=== PATIENT | female | born 1980 | race African-American/Black ===

== ENCOUNTER 2017-08-09 16:48 | Emergency (ER) | payer SELFPAY ==
[2017-08-09] MEDS ORDERED: IPRATROPIUM BROM 0.5MG/2.5ML ONE (17:26)
[2017-08-09] MEDS ORDERED: ALBUTEROL 2.5 MG/3 ML NEB SOL ONE (17:26)
[2017-08-09] MEDS ORDERED: predniSONE 20 MG TAB ONE (17:41)
--- NOTE | 2017-08-09 18:01 | ER ---
Nurse's Notes [facility] Name: Ivone White Age: 36 yrs Sex: Female : 1980 Arrival Date: 08/09/2017 Time: 16:48 Bed 15 Private MD: Diagnosis: Unspecified asthma with (acute) exacerbation;Other seasonal allergic rhinitis Presentation: 08/09 16:51 Presenting complaint: Patient states: my chest hurts and have difficulty breathing, it hj started this morning; been taking inhalers and not helping; reports since June; denies fever and chills; hx of asthma;. Transition of care: patient was not received from another setting of care. Onset of symptoms was August 09, 2017. Care prior to arrival: None. 16:51 Method Of Arrival: Ambulatory 16:51 Acuity: SANDRE 3 hj Triage Assessment: 16:53 General: Appears in no apparent distress. uncomfortable, Behavior is calm, cooperative, hj appropriate for age. Pain: Complains of pain in chest Pain does not radiate. Pain currently is 10 out of 10 on a pain scale. 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 - Social history:: Smoking status: Patient uses tobacco products, denies chronic smoking, but will smoke occasionally. Screenin:00 Abuse screen: Denies threats or abuse. Nutritional screening: No deficits noted. rb1 Tuberculosis screening: No symptoms or risk factors identified. Fall Risk None identified. Assessment: 17:00 General: Appears uncomfortable, obese, Behavior is calm, cooperative. General: Reports rb1 pain in chest when coughing Denies fever. Pain: Complains of pain in mid-sternal area Pain currently is 6 out of 10 on a pain scale. Neuro: Level of Consciousness is awake, alert, obeys commands, Oriented to person, place, time, situation. Cardiovascular: Capillary refill < 3 seconds is brisk in bilateral fingers. Respiratory: Airway is patent Respiratory effort is even, unlabored, Respiratory pattern is regular, symmetrical, Breath sounds with wheezes bilaterally. GI: No signs and/or symptoms were reported involving the gastrointestinal system. : No signs and/or symptoms were reported regarding the genitourinary system. Derm: Skin is dry, Skin is normal, Skin temperature is warm. Musculoskeletal: Range of motion: intact in all extremities. 18:00 Reassessment: Patient appears in no apparent distress at this time. Patient and/or rb1 family updated on plan of care and expected duration. Pain level reassessed. Patient is alert, oriented x 3, equal unlabored respirations, skin warm/dry/pink. Patient states symptoms have improved. Vital Signs: 16:54 BP 133 / 89; Pulse 89; Resp 18; Temp 97.8(TE); Pulse Ox 98% on R/A; Weight 131.54 kg; hj Height 5 ft. 6 in. (167.64 cm); Pain 10/10; 17:30 BP 123 / 82; Pulse 81; Resp 18; Pulse Ox 100% on R/A; rb1 18:31 BP 129 / 56; Pulse 93; Resp 19; Pulse Ox 100% on R/A; rb1 16:54 Body Mass Index 46.81 (131.54 kg, 167.64 cm) hj ED Course: 16:48 Patient arrived in ED. as 16:50 Allan Figueredo NP is PHCP. pm1 16:50 Kenyon Mensah MD is Attending Physician. pm1 16:52 Triage completed. hj 16:54 Arm band placed on left wrist. hj 17:00 Patient has correct armband on for positive identification. Bed in low position. Call rb1 light in reach. Side rails up X 1. Pulse ox on. NIBP on. 17:09 Halina Becker, RN is Primary Nurse. rb1 18:23 No provider procedures requiring assistance completed. Patient did not have IV access rb1 during this emergency room visit. Administered Medications: 17:09 Drug: Albuterol - atroVENT (3:1) (2.5 mg - 0.5 mg) 3 ml Route: Nebulizer; rb1 17:45 Follow up: Response: No adverse reaction; Marked relief of symptoms rb1 17:13 Drug: predniSONE 60 mg Route: PO; rb1 17:45 Follow up: Response: No adverse reaction; Marked relief of symptoms rb1 Outcome: 18:00 Discharge ordered by . pm1 18:23 Discharged to home ambulatory, with family. rb1 18:23 Condition: stable 18:23 Discharge instructions given to patient, Instructed on discharge instructions, follow up and referral plans. medication usage, Demonstrated understanding of instructions, follow-up care, medications, Prescriptions given X 3. 18:23 Patient left the ED. rb1 Signatures: Ella Newman Henry RN RN Halina Becker RN RN rb1 Allan Figueredo, [employer] pm1 Corrections: (The following items were deleted from the chart) 16:54 16:51 Presenting complaint: Patient states: my chest hurts and have difficulty hj breathing, it started this morning; been taking inhalers and not helping; denies fever and chills; hx of asthma; hj 16:57 16:54 Pulse 89bpm; Resp 18bpm; Pulse Ox 98% RA; Temp 97.8F Temporal; 131.54 kg; Height hj 5 ft. 6 in.; BMI: 46.8; Pain 10/10; hj 18:36 18:35 Patient left the ED. rb1 rb1
--- NOTE | 2017-08-09 18:01 | EDPHYS ---
Physician Documentation [facility] Name: Ivone White Age: 36 yrs Sex: Female : 1980 Arrival Date: 08/09/2017 Time: 16:48 Bed 15 Private MD: ED Physician Kenyon Mensah HPI: 08/09 17:28 This 36 yrs old Black Female presents to ER via Ambulatory with complaints of Asthma pm1 Exacerbation. 17:28 The patient presents to the emergency department with wheezing, the patient was pm1 reported to have non-productive cough, wheezing. Onset: The symptoms/episode began/occurred June. Associated signs and symptoms: Pertinent negatives: chest pain, fever, headache, nausea, palpitations, rash, vomiting. Severity of symptoms: in the emergency department the symptoms are worse. The patient has experienced similar episodes in the past, multiple times. The patient has not recently seen a physician, and does not have an established primary care provider. Patient with complaints of dry cough, nasal congestion and runny nose since June of this year. Patient was evaluated once for this in June and was discharged home with antibiotics. Antibiotics did not improve her symptoms. No fevers. Patient seasonal allergies at this time of year. 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 - Social history:: Smoking status: Patient uses tobacco products, denies chronic smoking, but will smoke occasionally. ROS: 17:28 Constitutional: Negative for fever, chills, and weight loss, Eyes: Negative for injury, pm1 pain, redness, and discharge. 17:28 Neck: Negative for injury, pain, and swelling, Cardiovascular: Negative for chest pain, palpitations, and edema. 17:28 Abdomen/GI: Negative for abdominal pain, nausea, vomiting, diarrhea, and constipation, Back: Negative for injury and pain, : Negative for injury, bleeding, discharge, and swelling, MS/Extremity: Negative for injury and deformity, Skin: Negative for injury, rash, and discoloration, Neuro: Negative for headache, weakness, numbness, tingling, and seizure. 17:28 ENT: Positive for nasal discharge, sinus congestion, Negative for ear pain, sore throat. 17:28 Respiratory: Positive for cough, shortness of breath, wheezing. Exam: 17:57 Constitutional: This is a well developed, well nourished patient who is awake, alert, pm1 and in no acute distress. Head/Face: Normocephalic, atraumatic. Eyes: Pupils equal round and reactive to light, extra-ocular motions intact. Lids and lashes normal. Conjunctiva and sclera are non-icteric and not injected. Cornea within normal limits. Periorbital areas with no swelling, redness, or edema. 17:57 Neck: Trachea midline, no thyromegaly or masses palpated, and no cervical lymphadenopathy. Supple, full range of motion without nuchal rigidity, or vertebral point tenderness. No Meningismus. Chest/axilla: Normal chest wall appearance and motion. Nontender with no deformity. No lesions are appreciated. Cardiovascular: Regular rate and rhythm with a normal S1 and S2. No gallops, murmurs, or rubs. Normal PMI, no JVD. No pulse deficits. 17:57 Abdomen/GI: Soft, non-tender, with normal bowel sounds. No distension or tympany. No guarding or rebound. No evidence of tenderness throughout. Back: No spinal tenderness. No costovertebral tenderness. Full range of motion. Skin: Warm, dry with normal turgor. Normal color with no rashes, no lesions, and no evidence of cellulitis. MS/ Extremity: Pulses equal, no cyanosis. Neurovascular intact. Full, normal range of motion. 17:57 ENT: External ear(s): are unremarkable, Ear canal(s): are normal, TM's: are normal, Nose: External nose: no obvious acute abnormality, Nasal septum: is midline, Turbinates: are swollen bilaterally, nasal drainage, that is minimal, and expressed from the right nare, that is clear, Mouth: is normal, Posterior pharynx: is normal, Airway: normal, no evidence of obstruction, patent. 17:57 Respiratory: the patient does not display signs of respiratory distress, Respirations: normal, Breath sounds: wheezing: expiratory that is mild, is scattered. 17:57 Neuro: Orientation: is normal, Motor: moves all fours, strength is normal, strength is 5/5 in all extremities. Vital Signs: 16:54 BP 133 / 89; Pulse 89; Resp 18; Temp 97.8(TE); Pulse Ox 98% on R/A; Weight 131.54 kg; hj Height 5 ft. 6 in. (167.64 cm); Pain 10/10; 17:30 BP 123 / 82; Pulse 81; Resp 18; Pulse Ox 100% on R/A; rb1 18:31 BP 129 / 56; Pulse 93; Resp 19; Pulse Ox 100% on R/A; rb1 16:54 Body Mass Index 46.81 (131.54 kg, 167.64 cm) hj MDM: 16:59 Patient medically screened. pm1 17:58 Data reviewed: vital signs. Data interpreted: Pulse oximetry: on room air is 98 %. pm1 Interpretation: normal. Counseling: I had a detailed discussion with the patient and/or guardian regarding: the historical points, exam findings, and any diagnostic results supporting the discharge/admit diagnosis, the need for outpatient follow up, to return to the emergency department if symptoms worsen or persist or if there are any questions or concerns that arise at home. 17:58 Medication response: Patient with resolution of wheezing. Feeling better and wants to pm1 go home. Administered Medications: 17:09 Drug: Albuterol - atroVENT (3:1) (2.5 mg - 0.5 mg) 3 ml Route: Nebulizer; rb1 17:45 Follow up: Response: No adverse reaction; Marked relief of symptoms rb1 17:13 Drug: predniSONE 60 mg Route: PO; rb1 17:45 Follow up: Response: No adverse reaction; Marked relief of symptoms rb1 Disposition: 18:55 Co-signature as Attending Physician, Kenyon Mensah MD. rn Disposition: 08/09/17 18:00 Discharged to Home. Impression: Unspecified asthma with (acute) exacerbation, Other seasonal allergic rhinitis. - Condition is Stable. - Discharge Instructions: Allergies, Asthma, Adult, How to Use an Inhaler. - Prescriptions for Prednisone 20 mg Oral Tablet - take 3 tablet by ORAL route once daily for 5 days; 15 tablet. Zyrtec- D 5-120 mg Oral Tablet Sustained Release 12 hr - take 1 tablet by ORAL route every 12 hours As needed; 20 tablet. Albuterol Sulfate 90 mcg/actuation - inhale 1-2 puff by INHALATION route every 4-6 hours; 1 Inhaler. - Medication Reconciliation Form, Thank You Letter form. - Follow up: Emergency Department; When: As needed; Reason: Worsening of condition. Follow up: Private Physician; When: 2 - 3 days; Reason: Recheck today's complaints, Continuance of care, Re-evaluation by your physician. - Problem is new. - Symptoms have improved. Signatures: Kenyon Mensah MD MD rn Joaquin, Henry, RN RN hj Barber, Rebecca, RN RN [facility] Allan Figueredo, [employer] ADJUSTER pm1
[2017-08-09 18:40] VITALS: TEMP 97.8
[2017-08-09 18:41] VITALS: O2SAT 100
[2017-08-09 18:43] VITALS: BP 129/56
== END 2017-08-09 18:35 | disposition home or self-care (01) ==
LOC: ER 16:48
DX: J45.901 Unspecified asthma with (acute) exacerbation (principal); D64.9 Anemia, unspecified; Z72.0 Tobacco use; Z88.6 Allergy status to analgesic agent
CPT/HCPCS: 94640; 99284; J7512

== ENCOUNTER 2021-10-06 19:00 | Emergency (ER) | payer OTHER, SELFPAY ==
--- OUTSIDE RECORDS SUMMARY | 2021-10-06 19:04 | XMS REPORT | Continuity of Care Document ---
:1980 Author Organization [facility] t Address [address] [place] [address] Care Team Providers Name Role Phone PCP, DOES NOT HAVE A Primary Care Physician Unavailable Troy Hodges Attending Clinician Unavailable Stacy BRAUN, T Attending Clinician Unavailable Provider, [facility] Attending Clinician Unavailable Paulina RUTHERFORD III Attending Clinician Unavailable Elpidio CHENG Attending Clinician Paulina Rutherford MD Attending Clinician Lazaro Attending Clinician Unavailable GC_DEBRAOMC_[place]_G Attending Clinician Unavailable Humberto Hodges Attending Clinician [phone] CATALINO Attending Clinician Unavailable MD RIAN BAE Attending Clinician Unavailable RAYMOND CAMACHO Attending Clinician Unavailable JESSENIA Attending Clinician Unavailable Troy Hodges Admitting Clinician Unavailable Physician, Primary or Family Admitting Clinician Unavailabl e GC_SWHAOMC_[place]_G Admitting Clinician Unavailable CATALINO Admitting Clinician Unavailable MD RIAN BAE Admitting Clinician Unavailable Payers Payer Name Policy Type Policy Number Effective Date Expiration Date S ource [facility] [id number] CHOICE (MEDICAID REPLACEMENT - HMO) Problems Condition Condition Condition Status Onset Resolution Last Treating Co mments Source Name Details Category Date Date Treatment Clinician Date No known No known Disease Unive rs active active ity of problems problems [facility] Allergies, Adverse Reactions, Alerts Allergy Allergy Status Severity Reaction(s) Onset Inactive Treating Comm ents Source Name Type Date Date Clinician metronid DA Active U [facility]ole 6-30 [facility] [place] strawber FA Active SV [facility] ry 6-30 [facility] [place] metronid DA Active U HEART [facility] PALPITATIONS 6-30 [facility] n[facility] 00:00: [facility] [place] straw[facility] FA Active SV SHORTNESS OF HC A ry BREATH 6-30 [facility] 00:[facility]: [facility] [place] metronid DA Active U 2019-05 [facility] azole 2-05 [facility] 00:[facility]: [facility] [place] straw[facility] FA Active SV 2019-05 [facility] ry 2-05 [facility] 00:[facility]: [facility] [place] metronid DA Active U HEART 2019-05 [facility] PALPITATIONS 2-05 [facility] n's 00:00: [facility] [place] straw[facility] FA Active SV SHORTNESS OF 2019-05 HC A ry BREATH 2-05 [facility] 00:[facility]: [facility] [place] METRONID DRUG Active Palpitations 0 Un william AZOLE INGREDI 4-30 ity of HCL 00:00: [place] 00 [facility] Metronid Propensi Active Palpitations [facility] azole ty to 4-30 ity of Hcl adverse 00:00: [place] reaction 00 Medical s Branch Social History Social Habit Start Date Stop Date Quantity Comments Source Exposure to Not sure [facility] SARS-CoV-2 (event) Medica l Branch Tobacco use and 2021-05-08 2021-05-08 Never used [facility] exposure 00:00:00 00:00:00 Medical Branch Sex Assigned At [birth year] [facility] 00:00:00 00:00:00 Medical Branch Smoking Status Start Date Stop Date Source Never smoker [facility] Medications Ordered Filled Start Stop Current Ordering Indication Dosage Frequency Signature Comments Components Source Medication Medication Date Date Medication? Clinician (SIG) Name Name metformin 2020-05 Yes 500mg Take 500 Uni vers ER 500 mg 1-19 mg by ity of 24 hr 00:00: mouth [place] tablet 00 daily. Medical [facility] metformin 2020-05 Yes 500mg Take 500 Uni vers ER 500 mg 1-19 mg by ity of 24 hr 00:00: mouth [place] tablet 00 daily. Medical [facility] metformin 2020-05 Yes 500mg Take 500 Uni vers ER 500 mg 1-19 mg by ity of 24 hr 00:00: mouth [place] tablet 00 daily. Medical [facility] ELIQUIS 5 2020-05 Yes [facility] mg tablet - ity of 00:00: [place] 00 [facility] ELIQUIS 5 2020-05 Yes [facility] mg tablet 05-04 ity of 00:00: [place] 00 [facility] ELIQUIS 5 2020-05 Yes [facility] mg tablet 05-04 ity of 00:00: [place] 00 [facility] albuterol Yes Inhale. Unive rs sulfate 90 4-30 ity of mcg/actuati 15:58: [place] on [address] loratadine Yes 10mg Take 10 mg U nivers (CLARITIN) 4-30 by mouth ity o f 10 mg 15:58: daily. [facility] albuterol Yes Inhale. Unive rs sulfate 90 4-30 ity of mcg/actuati 15:58: [place] on [facility] loratadine Yes 10mg Take 10 mg U nivers (CLARITIN) 4-30 by mouth ity o f 10 mg 15:58: daily. [facility] albuterol Yes Inhale. Unive rs sulfate 90 4-30 ity of mcg/actuati 15:58: [place] on [facility] 35 [facility] Branch loratadine Yes 10mg Take 10 mg U nivers (CLARITIN) 4-30 by mouth ity o f 10 mg 15:58: daily. [address] Vital Signs Vital Name Observation Time Observation Value Comments Source Systolic blood 2021-05-08 18:58:00 140 mm[Hg] Univer sity of pressure [facility] Diastolic blood 2021-05-08 18:58:00 96 mm[Hg] Unive rsity of pressure [facility] Heart rate 2021-05-08 18:56:00 97 /min [facility] Body temperature 2021-05-08 18:56:[address] [facility] Respiratory rate 2021-05-08 18:56:00 18 /min [facility] Body height 2021-05-08 18:56:00 162.6 cm [facility] Body weight 2021-05-08 18:56:00 105.235 kg [facility] BMI 2021-05-08 18:56:00 39.82 kg/m2 [facility] Oxygen saturation in 2021-05-08 18:56:00 98 /min [facility] Arterial blood by [facility] Pulse oximetry Branch Procedures Procedure Date / Time Performed Performing Clinician [facility] sharona [id number] 2020-07-25 00:00:00 [facility] Encounters Start End Encounter Admission Attending Care Care Encounter Source Date/Time Date/Time Type Type Clinicians Facility Department ID 2020-07-24 Inpatient [facility], [facility] LD [id number] [facility] 12:00:00 Ike [id number] [facility] [place] 2020-06-10 Inpatient [place], [facility] JESSA [id number] [facility] 21:03:00 Ike [id number] [facility] [place] 2020-05-27 Inpatient [facility], [facility] OBANTE [id number] [facility] 15:00:00 Ike [id number] [facility] [place] 2020-05-25 Inpatient [facility], [facility] OBANTE [id number] [facility] 14:29:00 Ike [id number] [facility] [place] 2020-05-08 Inpatient [place], [facility] JESSA [id number] [facility] 14:29:00 Ike [id number] [facility] [place] 2020-04-21 Inpatient [place], [facility] JESSA [id number] [facility] 22:05:00 Ike [id number] [facility] [place] 2020-04-07 Inpatient [place], [facility] JESSA [id number] [facility] 11:54:00 Ike [facility] [place] 2021-05-10 2021-05-10 Letter MADAN Kumar [id number] Univers 00:00:00 00:00:00 (Out) Lorrie Hunt ADITHYA [id number] it y of [facility] [id number] Kristofer as [phone] [address] 2021-05-10 2021-05-10 Letter [facility] [id number] Univers 00:00:00 00:00:00 (Out) [facility] [id number] it y of Urgent Care SURGICAL [id number] [facility] [id number] Ia [address] 2021-05-08 2021-05-08 Outpatient Yoly [facility] [id number] Univers 13:00:00 13:21:26 SINTIA [facility] 2021-05-08 2021-05-08 Urgent Anderson Magallanes [facility] [id number] Univers 13:00:00 13:20:00 Care Sintia [facility] [id number] ity [facility] [id number] Kristofer as CORNEL?BLEA [id number] [place] [address] MEDICAL OFFICE BUILDING 2020-10-31 2020-10-31 Emergency ABNER Willis, [facility] [id number] [facility] 19:21:00 21:26:00 Analysa [id number] [facility] 2020-09-12 2020-09-12 Outpatient GC_SWHAOMC_ PRIV PRIV [id number] [facility] 11:42:00 11:42:00 Magan [id number] [facility] 2020-09-11 2020-09-11 Outpatient GC_SWHAOMC_ PRIV PRIV [id number] [facility] 03:53:00 03:53:00 Magan [id number] [facility] 2020-09-11 2020-09-11 Outpatient Hodges, PRIV PRIV [id number] 00:00:00 00:00:00 Ike [id number] Humberto [id number] 2020-08-11 2020-08-11 Outpatient GC_SWHAOMC_ PRIV PRIV [id number] [facility] 08:08:00 08:08:00 Magan [id number] [facility] 2020-05-07 2020-05-07 Outpatient DIEGO [facility] [id number] [facility] 12:03:00 12:03:00 Ike [id number] [facility] 2020-01-06 2020-01-08 Inpatient CATALINO, [facility] [id number] [place] 00:00:00 00:00:00 AZALEA [address] 2019-12-24 2019-12-24 Emergency E DOUG, [facility] [address] [facility] 13:26:00 18:05:00 JCARLOS 2019-11-29 2019-11-29 Emergency E JASON RUELAS [facility] [address] [facility] 14:17:00 22:09:00 2018-09-20 2018-09-20 Emergency E [facility] [id number] [facility] 01:37:00 01:37:00 Results Test Description Test Time Test Comments Results Result Comments Source Coronavirus 2018 nCoV Bedside 2020-10-31 21:15:00 Test Item Value Reference Range Interpretation Comme nts Coronavirus 2019 nCoV Bedside Negative Negative This result does not rule out (test code = [id number]) c o-infections with otherpathogens. * False negati ve results may occur if a spec imen isimproperly collected, overton sported or handled. False negativer esults may also occur if amplif ication inhibitors arepresent in t he specimen or if inadequate leve ls of virusesare present in the specimen. * As with any molecu lar test, if the virus mutates i n thetarget region, COVID-19 may no t be detected or may bedetected less predictably.JULIANA T PERFORMED UNDER AN EMERGENCY US E AUTHORIZATION FROM FDA UA RFLX MICR CULT IF [id number] 20:03:00 Test Item Value Reference Range Interpretation Comments UA COLOR (test code = COLU) YELLOW YELLOW UA APPEARANCE (test code = CLOUDY CLEAR A APPU) UA GLUCOSE DIPSTICK (test code NEGATIVE NEG = DGLUU) UA BILIRUBIN DIPSTICK (test NEGATIVE NEG code = BILU) UA KETONE DIPSTICK (test code NEGATIVE NEG = KETU) UA SPECIFIC GRAVITY (test code 1.014 1.001-1.035 N = SGU) UA BLOOD DIPSTICK (test code = 1+ NEG A SARIKA) UA PH DIPSTICK (test code = 6.0 5-9 ZORAN) UA PROTEIN DIPSTICK (test code NEGATIVE NEG = PROU) UA UROBILINIOGEN DIPSTICK NEGATIVE mg/dL NEG (test code = URO) UA NITRITE DIPSTICK (test code NEG NEG = SUAD) UA LEUKOCYTE ESTERASE DIPSTICK 3+ NEG A (test code = LEUU) UA WBC (test code = WBCU) 41-50 #/hpf NONE SEEN A UA RBC (test code = RBCU) 6-10 #/hpf NONE SEEN A UA EPITHELIAL CELLS (test code MODERATE #/HPF RARE-FEW A = EPIU) UA BACTERIA (test code = BACU) RARE /HPF RARE-FEW UA MUCUS (test code = MUCU) RARE NONE SEEN Indication for culture: Suprapubic PainSpecimen Description: CLEAN CATCHUR HCG [id number] 20:03:00 Test Item Value Reference Range Interpretation Comments UR HCG QUAL (test NEGATIVE 1. Very di lute urine code = HCGQLU) specimens, as indicated by a lowspecific g ravity, may not contain rep resentative levels ofhCG. 2 . False negative result s may occur when the levels of hCGare below the sensi tivity level of the test. If is still suspec adair, a first morningurine sp ecimen should be colle cted 48 hours later and tested. Indication for culture: Suprapubic PainSpecimen Description: CLEAN CATCHUA RFLX MICR CULT IF [id number] 20:02:00 Test Item Value Reference Range Interpretation Comments UA COLOR (test code = COLU) YELLOW YELLOW UA APPEARANCE (test code = CLOUDY CLEAR A APPU) UA GLUCOSE DIPSTICK (test code NEGATIVE NEG = DGLUU) UA BILIRUBIN DIPSTICK (test NEGATIVE NEG code = BILU) UA KETONE DIPSTICK (test code NEGATIVE NEG = KETU) UA SPECIFIC GRAVITY (test code 1.014 1.001-1.035 N = SGU) UA BLOOD DIPSTICK (test code = 1+ NEG A SARIKA) UA PH DIPSTICK (test code = 6.0 5-9 ZORAN) UA PROTEIN DIPSTICK (test code NEGATIVE NEG = PROU) UA UROBILINIOGEN DIPSTICK NEGATIVE mg/dL NEG (test code = URO) UA NITRITE DIPSTICK (test code NEG NEG = SUAD) UA LEUKOCYTE ESTERASE DIPSTICK 3+ NEG A (test code = LEUU) UA WBC (test code = WBCU) 41-50 #/hpf NONE SEEN A UA RBC (test code = RBCU) 6-10 #/hpf NONE SEEN A UA EPITHELIAL CELLS (test code MODERATE #/HPF RARE-FEW A = EPIU) UA BACTERIA (test code = BACU) RARE /HPF RARE-FEW UA MUCUS (test code = MUCU) RARE NONE SEEN Indication for culture: Suprapubic PainSpecimen Description: CLEAN CATCHUR HCG [id number] 20:02:00 Test Item Value Reference Range Interpretation Comments UR HCG QUAL (test code = HCGQLU) Indication for culture: Suprapubic PainSpecimen Description: CLEAN CATCH LEIOMYOMA,UTERINE [id number] 12:15:00 Test Item Value Reference Range Interpretation Comments LEIOMYOMA,UTERINE MYOMECTOMY (test code = LEIOMY) RUN DATE: 07/30/20 [facility] PAGE 1 RUN TIME: 1819 Specimen Inquiry RUN USER: INTERFACE DWAYNE ENT: DIMAS PARKER LOC: RAMÍREZ U #: [id number] AGE/SX: 39/F ROOM: [facility] RE07/24/20REG DR: Ike Hodges MD : 80 BED: A DIS: 07/28/20 STATUS: DIS IN TLOC: SPEC #: [id number] RECD: 07/26/20 STATUS: CRISTEL REDonato #: [id number] LORETA: 07/25/20- SUBM DR: Ike Hodges MD ENTERED: 07/26/20 SP TYPE: LEIOMY OTHR DR: ORDERED: LEVEL IV CODES: [id number] - MYOMETRIUM, NOS PROCEDURES: LEVEL IV (Incomplete) TISSUES: MYOMETRIUM, NOS - UTERINE FIBROID CLINICAL HISTORY 39 year old, 37.3 weeks, L2, section, uterine fibroids (steven) FINAL DIAGNOSIS Uterine fibroid, resection: - leiomyoma with areas of infarct-type necrosis CPT: 86862 cds/wpd GROSS DESCRIPTION ANATOMIC SOURCE OF TISSUE (per Requisition): Uterine fibroid The specimen is received in a formalin-filled container, labeled with the patient's name and designated "uterine fibroid". The specimen consists of a 780 gm, 14 x 10 x 10 cm eduardo-pink nodule. Red-brown adhesions are identified. The nodule is sectioned to reveal red-brown fluid. The specimen is approximately 90% necrotic. A white, whorled cut surface is identified. Director Of Trauma sections are submitted in A1 - A7. neal/steven 07/26/20 ---- Signed Hemal Friedman Coleman 07/30/20 1215 END OF REPORT CBC W/AUTO [id number] 11:26:00 Test Item Value Reference Range Interpretation Comments WHITE BLOOD CELL (test code = WBC) 12.7 K/mm3 6.5-12.3 H RED BLOOD CELL (test code = RBC) 3.03 M/mm3 3.51-4.69 L HEMOGLOBIN (test code = HGB) 7.9 g/dL 10.1-13.8 L HEMATOCRIT (test code = HCT) 25.4 % 32.5-41.8 L MEAN CELL VOLUME (test code = MCV) 83.8 fL 84.6-96.6 L MEAN CELL HGB (test code = MCH) 26.1 pg 27.3-33.9 L MEAN CELL HGB CONCETRATION (test 31.1 gm/dL 32.0-34.2 L code = MCHC) RED CELL DISTRIBUTION WIDTH (test 16.8 % 12.2-16.3 H code = RDW) PLATELET COUNT (test code = PLT) 225 K/mm3 134-363 N MEAN PLATELET VOLUME (test code = 10.1 fL 9.2-12.7 N MPV) NEUTROPHIL % (test code = NT%) 71.8 % 57.9-77.3 N LYMPHOCYTE % (test code = LY%) 17.0 % 14.5-29.7 N MONOCYTE % (test code = MO%) 6.2 % 3.6-10.2 N EOSINOPHIL % (test code = EO%) 3.1 % 0.0-3.0 H BASOPHIL % (test code = BA%) 0.2 % 0.1-0.9 N NEUTROPHIL # (test code = NT#) 9.1 K/mm3 LYMPHOCYTE # (test code = LY#) 2.2 K/mm3 MONOCYTE # (test code = MO#) 0.8 K/mm3 EOSINOPHIL # (test code = EO#) 0.39 K/mm3 BASOPHIL # (test code = BA#) 0.0 K/mm3 RBC MORPHOLOGY REQUIRED (test code NORMAL NORMAL = RBCM) PLATELET MORPHOLOGY REQUIRED (test NORMAL NORMAL code = PLTMR) [id number] 10:54:00 Test Item Value Reference Range Interpretation Comments GLUBED (test code = GLUBED) 95 mg/dL 65-110 N [id number] 06:19:00 Test Item Value Reference Range Interpretation Comments GLUBED (test code = GLUBED) 83 mg/dL 65-110 N [id number] 21:16:00 Test Item Value Reference Range Interpretation Comments GLUBED (test code = GLUBED) 85 mg/dL 65-110 N [id number] 16:29:00 Test Item Value Reference Range Interpretation Comments GLUBED (test code = GLUBED) 102 mg/dL 65-110 N [id number] 11:50:00 Test Item Value Reference Range Interpretation Comments GLUBED (test code = GLUBED) 90 mg/dL 65-110 N [id number] 06:57:00 Test Item Value Reference Range Interpretation Comments GLUBED (test code = GLUBED) 91 mg/dL 65-110 N [id number] 20:43:00 Test Item Value Reference Range Interpretation Comments GLUBED (test code = GLUBED) 116 mg/dL 65-110 H [id number] 16:29:00 Test Item Value Reference Range Interpretation Comments GLUBED (test code = GLUBED) 109 mg/dL 65-110 N [id number] 11:27:00 Test Item Value Reference Range Interpretation Comments GLUBED (test code = GLUBED) 101 mg/dL 65-110 N HGB [id number] 08:34:00 Test Item Value Reference Range Interpretation Comments HEMOGLOBIN (test code = HGB) 7.7 g/dL 10.1-13.8 L HEMATOCRIT (test code = HCT) 25.3 % 32.5-41.8 L [id number] 06:50:00 Test Item Value Reference Range Interpretation Comments GLUBED (test code = GLUBED) 110 mg/dL 65-110 N [id number] 21:44:00 Test Item Value Reference Range Interpretation Comments GLUBED (test code = GLUBED) 135 mg/dL 65-110 H [id number] 14:51:00 Test Item Value Reference Range Interpretation Comments GLUBED (test code = GLUBED) 134 mg/dL 65-110 H [id number] 13:41:00 Test Item Value Reference Range Interpretation Comments GLUBED (test code = GLUBED) 114 mg/dL 65-110 H [id number] [id number] 11:03:00 Test Item Value Reference Range Interpretation Comments HEMOGLOBIN (test code = HGB) 9.0 g/dL 10.1-13.8 L HEMATOCRIT (test code = HCT) 29.4 % 32.5-41.8 L CBC W/AUTO [id number] 06:45:00 Test Item Value Reference Range Interpretation Comments WHITE BLOOD CELL (test code = WBC) 9.5 K/mm3 6.5-12.3 N RED BLOOD CELL (test code = RBC) 2.99 M/mm3 3.51-4.69 L HEMOGLOBIN (test code = HGB) 7.5 g/dL 10.1-13.8 L HEMATOCRIT (test code = HCT) 25.3 % 32.5-41.8 L MEAN CELL VOLUME (test code = MCV) 84.6 fL 84.6-96.6 N MEAN CELL HGB (test code = MCH) 25.1 pg 27.3-33.9 L MEAN CELL HGB CONCETRATION (test 29.6 gm/dL 32.0-34.2 L code = MCHC) RED CELL DISTRIBUTION WIDTH (test 16.8 % 12.2-16.3 H code = RDW) PLATELET COUNT (test code = PLT) 209 K/mm3 134-363 N MEAN PLATELET VOLUME (test code = 10.1 fL 9.2-12.7 N MPV) NEUTROPHIL % (test code = NT%) 65.4 % 57.9-77.3 N LYMPHOCYTE % (test code = LY%) 24.7 % 14.5-29.7 N MONOCYTE % (test code = MO%) 6.9 % 3.6-10.2 N EOSINOPHIL % (test code = EO%) 2.0 % 0.0-3.0 N BASOPHIL % (test code = BA%) 0.3 % 0.1-0.9 N NEUTROPHIL # (test code = NT#) 6.2 K/mm3 LYMPHOCYTE # (test code = LY#) 2.3 K/mm3 MONOCYTE # (test code = MO#) 0.7 K/mm3 EOSINOPHIL # (test code = EO#) 0.19 K/mm3 BASOPHIL # (test code = BA#) 0.0 K/mm3 RBC MORPHOLOGY REQUIRED (test code NORMAL NORMAL = RBCM) PLATELET MORPHOLOGY REQUIRED (test NORMAL NORMAL code = PLTMR) [id number] 18:47:00 Test Item Value Reference Range Interpretation Comments GLUBED (test code = GLUBED) 111 mg/dL 65-110 H COMPREHENSIVE METABOLIC [id number] 11:55:00 Test Item Value Reference Range Interpretation Comments SODIUM (test code = NA) 136 mEq/L 135-145 N POTASSIUM (test code = K) 3.9 mEq/L 3.5-5.0 N CHLORIDE (test code = CL) 102 mEq/L 100-115 N CARBON DIOXIDE (test code = CO2) 23 mEq/L 22-31 N ANION GAP (test code = GAP) 15.20 10-20 N GLUCOSE (test code = GLU) 103 mg/dL 65-110 N BLOOD UREA NITROGEN (test code = 6 mg/dL 7-18 L BUN) GLOMERULAR FILTRATION RATE (test 125 ml/min >60 N code = GFR) CREATININE (test code = CREAT) 0.6 mg/dL 0.5-1.0 N TOTAL PROTEIN (test code = PROT) 6.4 gm/dL 6.3-8.2 N ALBUMIN (test code = ALB) 2.5 gm/dL 3.4-4.8 L CALCIUM (test code = CA) 8.5 mg/dL 8.4-10.2 N BILIRUBIN TOTAL (test code = 0.2 mg/dL 0.2-1.0 N BILT) SGOT/AST (test code = AST) 13 units/L 15-37 L SGPT/ALT (test code = ALT) 13 units/L 12-78 N ALKALINE PHOSPHATASE TOTAL (test 128 units/L 46-116 H code = ALKP) COVID 19 Asymptomatic IH [id number] 22:18:00 Test Item Value Reference Range Interpretation Comments COVID 19 NEGATIVE NEGATIVE This test has b een Asymptomatic IH AG authorize d only for the (test code = detection ofpro teins from COVNONPUIAG) SARS-CoV-2, not for any other viruses orpathogens. N egative results should be treated as presumptive andconfirmed wi th a molecular assay , if necessary for patientmanageme nt. Negative result s do not rule out COVID- 19 andshould not b e used as the sole basis for treatment orpat ient management deci sions, including infec tion controldecision s. Negative result s should be considered i n thecontext of a patient's recent exposure s, history and thepresence of clinical signs and symptoms consis tent withCOVID-19. T his test has not been FD A cleared or approved; th e test hasbeen authori raymundo by FDA under an Emerge ncy Use Authorization(E UA) for use by laborato sherri certified under the CLIA thatmeet the re quirements to perform mode rate, high or waivedcomple xity tests. This juliana t is authorized for use at thePoint of Car e (POC), i.e., in patien t care settingsoperati ng under a CLIA Certificat e of Waiver, Certifi abrahan ofCompliance, o r Certificate of Accreditation. This test is only authori zegeoffrey for the duration of thedeclaration that circumstances e xist justifying theauthorizatio n of emergency use o f in vitro diagnostic test sfor detection and/o r diagnosis of CO VID-19 under Qocqgsr83 4(b)(1) of the Act, 21 U.S .C. 360bbb-3(b)(1), unless theauthorizatio n is terminated or r evoked sooner. AG HEPATITIS B [id number] 18:11:00 Test Item Value Reference Range Interpretation Comments AG HEPATITIS B SURFACE (test code NONREACTIVE NONREACTIVE = HBSAG) : *IS CONSENT FORM SIGNED FOR HIV TESTING? YAB [id number] 18:11:00 Test Item Value Reference Range Interpretation Comments AB TREPONEMA (test code = TREPAB) NONREACTIVE NONREACTIVE : *IS CONSENT FORM SIGNED FOR HIV TESTING? YAB HIV 1 18:11:00 Test Item Value Reference Range Interpretation Comments AB HIV 1 2 (test NONREACTIVE NONREACTIVE Done by Troy Ortega code = [id number]) 4th Gen HIV Ag/Ab Combo Screen : *IS CONSENT FORM SIGNED FOR HIV TESTING? YCBC W/AUTO [id number] 16:54:00 Test Item Value Reference Range Interpretation Comments WHITE BLOOD CELL (test code = WBC) 10.4 K/mm3 6.5-12.3 N RED BLOOD CELL (test code = RBC) 3.23 M/mm3 3.51-4.69 L HEMOGLOBIN (test code = HGB) 8.1 g/dL 10.1-13.8 L HEMATOCRIT (test code = HCT) 27.0 % 32.5-41.8 L MEAN CELL VOLUME (test code = MCV) 83.6 fL 84.6-96.6 L MEAN CELL HGB (test code = MCH) 25.1 pg 27.3-33.9 L MEAN CELL HGB CONCETRATION (test 30.0 gm/dL 32.0-34.2 L code = MCHC) RED CELL DISTRIBUTION WIDTH (test 16.7 % 12.2-16.3 H code = RDW) PLATELET COUNT (test code = PLT) 242 K/mm3 134-363 N MEAN PLATELET VOLUME (test code = 10.2 fL 9.2-12.7 N MPV) NEUTROPHIL % (test code = NT%) 67.1 % 57.9-77.3 N LYMPHOCYTE % (test code = LY%) 22.5 % 14.5-29.7 N MONOCYTE % (test code = MO%) 7.4 % 3.6-10.2 N EOSINOPHIL % (test code = EO%) 1.7 % 0.0-3.0 N BASOPHIL % (test code = BA%) 0.4 % 0.1-0.9 N NEUTROPHIL # (test code = NT#) 7.0 K/mm3 LYMPHOCYTE # (test code = LY#) 2.4 K/mm3 MONOCYTE # (test code = MO#) 0.8 K/mm3 EOSINOPHIL # (test code = EO#) 0.18 K/mm3 BASOPHIL # (test code = BA#) 0.0 K/mm3 RBC MORPHOLOGY REQUIRED (test code NORMAL NORMAL = RBCM) PLATELET MORPHOLOGY REQUIRED (test NORMAL NORMAL code = PLTMR) GLUCOSE [id number] 10:34:00 Test Item Value Reference Range Interpretation Comments GLUCOSE 3HR (test code = GLU3) 131 mg/dL 65-110 H 3HR GTT GLU3 GLU3HR from [id number].GLUCOSE [id number] 09:28:00 Test Item Value Reference Range Interpretation Comments GLUCOSE 2HR (test 209 mg/dL </= 95 H RESULTS VERIFIED BY code = GLU2) REPEAT ANALYSIS REF RANGE IS FOR ADULT.NON-PREGN ANT REF RANGE IS 70-140 3HR GTT GLU2 GLU2HR from 0126:CF:[id number].GLUCOSE 1HR POST [id number] 08:32:00 Test Item Value Reference Range Interpretation Comments GLUCOSE 1HR POST 200 mg/dL </= 180 H Ref range i s for PRANDIAL (test code = pregna nt female GLU1) (Coustan Criteria)Non-pr egnant is 100-200 mg/d L 3HR GTT GLU1 GLU1HR from 0126:CF:[id number].GLUCOSE [id number] 06:18:00 Test Item Value Reference Range Interpretation Comments GLUCOSE FASTING (test 124 mg/dL </= 95 H Ref ra nge is for code = GLUF) female (Coustan Criteria)Non-pr egnant is 65-100 mg/dL 3HR GTT GLUF GLUFAST from 0126:CF:[id number].AB [id number] 19:37:00 Test Item Value Reference Range Interpretation Comments AB TREPONEMA (test code = TREPAB) NONREACTIVE NONREACTIVE : *IS CONSENT FORM SIGNED FOR HIV TESTING? YAB HIV 1 19:37:00 Test Item Value Reference Range Interpretation Comments AB HIV 1 2 (test NONREACTIVE NONREACTIVE Done by Troy Ortega code = [id number]) 4th Gen HIV Ag/Ab Combo Screen : *IS CONSENT FORM SIGNED FOR HIV TESTING? YAB [id number] 19:06:00 Test Item Value Reference Range Interpretation Comments AB TREPONEMA (test code = TREPAB) NONREACTIVE NONREACTIVE : *IS CONSENT FORM SIGNED FOR HIV TESTING? YAB HIV 1 19:06:00 Test Item Value Reference Range Interpretation Comments AB HIV 1 2 (test code = FRI28XN) NONREACTIVE : *IS CONSENT FORM SIGNED FOR HIV TESTING? [id number] 18:42:00 Test Item Value Reference Range Interpretation Comments CREATININE (test code = CREAT) 0.5 mg/dL 0.5-1.0 N CBC W/AUTO [id number] 18:37:00 Test Item Value Reference Range Interpretation Comments WHITE BLOOD CELL (test code = WBC) 10.0 K/mm3 6.6-12.1 N RED BLOOD CELL (test code = RBC) 3.23 M/mm3 3.45-5.01 L HEMOGLOBIN (test code = HGB) 8.3 g/dL 10.7-13.9 L HEMATOCRIT (test code = HCT) 27.7 % 32.1-42.1 L MEAN CELL VOLUME (test code = MCV) 86 fL 84.1-94.8 N MEAN CELL HGB (test code = MCH) 25.7 pg 27-35 L MEAN CELL HGB CONCETRATION (test 30.0 gm/dL 32.2-34.1 L code = MCHC) RED CELL DISTRIBUTION WIDTH (test 15.8 % 12.4-16.5 N code = RDW) PLATELET COUNT (test code = PLT) 242 K/mm3 133-385 N MEAN PLATELET VOLUME (test code = 9.5 fl 9.1-12.7 N MPV) NEUTROPHIL % (test code = NT%) 67.5 % 56.5-79.4 N LYMPHOCYTE % (test code = LY%) 23.0 % 14.3-34.3 N MONOCYTE % (test code = MO%) 6.8 % 5.1-10.4 N EOSINOPHIL % (test code = EO%) 1.8 % 0.1-3.0 N BASOPHIL % (test code = BA%) 0.3 % 0.1-1.0 N NEUTROPHIL # (test code = NT#) 6.7 K/mm3 LYMPHOCYTE # (test code = LY#) 2.3 K/mm3 MONOCYTE # (test code = MO#) 0.7 K/mm3 EOSINOPHIL # (test code = EO#) 0.18 K/mm3 BASOPHIL # (test code = BA#) 0.0 K/mm3 RBC MORPHOLOGY REQUIRED (test code NORMAL NORMAL = RBCM) PLATELET MORPHOLOGY REQUIRED (test NORMAL NORMAL code = PLTMR) COVID 19 Asymptomatic IH [id number] 15:31:00 Test Item Value Reference Range Interpretation Comments COVID 19 NEGATIVE NEGATIVE This test has b een Asymptomatic IH AG authorize d only for the (test code = detection ofpro teins from COVNONPUIAG) SARS-CoV-2, not for any other viruses orpathogens. N egative results should be treated as presumptive andconfirmed wi th a molecular assay , if necessary for patientmanageme nt. Negative result s do not rule out COVID- 19 andshould not b e used as the sole basis for treatment orpat ient management deci sions, including infec tion controldecision s. Negative result s should be considered i n thecontext of a patient's recent exposure s, history and thepresence of clinical signs and symptoms consis tent withCOVID-19. T his test has not been FD A cleared or approved; th e test hasbeen authorsteffen fonseca by FDA under an Emerge ncy Use Authorization(E UA) for use by elizabeth polanco certified under the CLIA thatmeet the re quirements to perform mode rate, high or waivedcomple xity tests. This juliana t is authorized for use at thePoint of Car e (POC), i.e., in patien t care settingsoperati ng under a CLIA Certificat e of Waiver, Certifi abrahan ofCompliance, o r Certificate of Accreditation. This test is only authori zegeoffrey for the duration of thedeclaration that circumstances e xist justifying theauthorizatio n of emergency use o f in vitro diagnostic test sfor detection and/o r diagnosis of CO VID-19 under Pwvzzzh82 4(b)(1) of the Act, 21 U.S .C. 360bbb-3(b)(1), unless theauthorizatio n is terminated or r evoked sooner. UA RFLX MICR CULT IF [id number] 17:52:00 Test Item Value Reference Range Interpretation Comments UA COLOR (test code = COLU) YELLOW YELLOW UA APPEARANCE (test code = Slightly-Cloudy CLEAR APPU) UA GLUCOSE DIPSTICK (test NEGATIVE NEG code = DGLUU) UA BILIRUBIN DIPSTICK (test NEGATIVE NEG code = BILU) UA KETONE DIPSTICK (test code NEGATIVE NEG = KETU) UA SPECIFIC GRAVITY (test 1.027 1.001-1.035 N code = SGU) UA BLOOD DIPSTICK (test code NEG NEG = SARIKA) UA PH DIPSTICK (test code = 6.0 5-9 ZORAN) UA PROTEIN DIPSTICK (test 2+ NEG A code = PROU) UA UROBILINIOGEN DIPSTICK 2.0 mg/dL NEG (test code = URO) UA NITRITE DIPSTICK (test NEG NEG code = SUAD) UA LEUKOCYTE ESTERASE 1+ NEG A DIPSTICK (test code = LEUU) UA WBC (test code = WBCU) 21-30 #/hpf NONE SEEN A UA RBC (test code = RBCU) 6-10 #/hpf NONE SEEN A UA EPITHELIAL CELLS (test MODERATE #/HPF RARE-FEW A code = EPIU) UA MUCUS (test code = MUCU) 1+ NONE SEEN Indication for culture: Suprapubic PainSpecimen Description: CLEAN CATCHD- DIMER [id number] 17:51:00 Test Item Value Reference Range Interpretation Comments D-DIMER QUANT 438 ng/mLDDU <255 H (test code = Refere nce DDIMER) Range in : &lt ;570 ng/ml A positive test d oes not provide a defin itive diagnosis ofDVT and indicates the n eed for follow up clini jana studies. The pr edictive value of a nega tive test is 98% for rulingout DVT. COMPREHENSIVE METABOLIC [id number] 17:44:00 Test Item Value Reference Range Interpretation Comments SODIUM (test code = NA) 137 mEq/L 135-145 N POTASSIUM (test code = K) 4.0 mEq/L 3.5-5.0 N CHLORIDE (test code = CL) 103 mEq/L 100-115 N CARBON DIOXIDE (test code = CO2) 24 mEq/L 22-31 N ANION GAP (test code = GAP) 13.70 10-20 N GLUCOSE (test code = GLU) 103 mg/dL 65-110 N BLOOD UREA NITROGEN (test code = 6 mg/dL 7-18 L BUN) GLOMERULAR FILTRATION RATE (test 125 ml/min >60 N code = GFR) CREATININE (test code = CREAT) 0.6 mg/dL 0.5-1.0 N TOTAL PROTEIN (test code = PROT) 7.4 gm/dL 6.3-8.2 N ALBUMIN (test code = ALB) 2.5 gm/dL 3.4-4.8 L CALCIUM (test code = CA) 9.2 mg/dL 8.4-10.2 N BILIRUBIN TOTAL (test code = BILT) 0.2 mg/dL 0.2-1.0 N SGOT/AST (test code = AST) 12 units/L 15-37 L SGPT/ALT (test code = ALT) 12 units/L 12-78 N ALKALINE PHOSPHATASE TOTAL (test 99 units/L 46-116 N code = ALKP) CBC W/AUTO [id number] 17:34:00 Test Item Value Reference Range Interpretation Comments WHITE BLOOD CELL (test code = WBC) 11.5 K/mm3 6.6-12.1 N RED BLOOD CELL (test code = RBC) 3.40 M/mm3 3.45-5.01 L HEMOGLOBIN (test code = HGB) 8.8 g/dL 10.7-13.9 L HEMATOCRIT (test code = HCT) 29.5 % 32.1-42.1 L MEAN CELL VOLUME (test code = MCV) 87 fL 84.1-94.8 N MEAN CELL HGB (test code = MCH) 25.9 pg 27-35 L MEAN CELL HGB CONCETRATION (test 29.8 gm/dL 32.2-34.1 L code = MCHC) RED CELL DISTRIBUTION WIDTH (test 15.5 % 12.4-16.5 N code = RDW) PLATELET COUNT (test code = PLT) 255 K/mm3 133-385 N MEAN PLATELET VOLUME (test code = 9.6 fl 9.1-12.7 N MPV) NEUTROPHIL % (test code = NT%) 69.5 % 56.5-79.4 N LYMPHOCYTE % (test code = LY%) 21.5 % 14.3-34.3 N MONOCYTE % (test code = MO%) 6.3 % 5.1-10.4 N EOSINOPHIL % (test code = EO%) 1.5 % 0.1-3.0 N BASOPHIL % (test code = BA%) 0.2 % 0.1-1.0 N NEUTROPHIL # (test code = NT#) 8.0 K/mm3 LYMPHOCYTE # (test code = LY#) 2.5 K/mm3 MONOCYTE # (test code = MO#) 0.7 K/mm3 EOSINOPHIL # (test code = EO#) 0.17 K/mm3 BASOPHIL # (test code = BA#) 0.0 K/mm3 RBC MORPHOLOGY REQUIRED (test code NORMAL NORMAL = RBCM) PLATELET MORPHOLOGY REQUIRED (test NORMAL NORMAL code = PLTMR) - DUP VEIN UNI [id number] 17:05:00 [facility] : 1980 Sex: F Patient Name: DIMAS PARKER Unit No: [id number] EXAMS: CPT CODE: [id number] [address] PROCEDURE: UNILATERAL LOWER EXTREMITY VENOUS ULTRASOUND INDICATION: 26 weeks with right calf pain. COMPARISON: None. TECHNIQUE: Sonographic evaluation ofthe right lower extremity veins was performed using high resolution B-mode, pulse and color Doppler imaging. FINDINGS: The common femoral, femoral, popliteal and visualized calf veins are patent. The saphenofemoral junction is unremarkable. Normal venous waveforms. IMPRESSION: No deep venous thrombosis. SL: SG-Carol at 1705 Reported and signed by: Amor Mehta MD CC: Greg Morrison MD; Ike Hodges Technologist: Madison Chaidez RDMS, RVT Probe: Trnscrbd D/ (1705) [email or web address] Orig Print D/T: S: 05/08/2020 (1708) The [facility] NAME: DIMAS PARKER Radiology Department PHYS: Greg Machuca [address] : 1980 AGE: 39 SEX: F [place] [address] LOC: F.ERS PHONE #: [phone] EXAM DATE: 05/08/2020 STATUS: REG ER FAX #: [phone] RAD NO: Page 1 Signed Report Patient Name: DIMAS PARKER Unit No: [id number] EXAMS: CPT CODE: [id number] [place] [address] <Continued> The [facility] NAME: DIMAS PARKER Radiology Department PHYS: Greg Machuca [address] : 1980 AGE: 39 SEX: F [place] [address] LOC: Jere.ERS PHONE #: [phone] EXAM DATE: 05/08/2020 STATUS: REG ER FAX #: [phone] RAD NO: Page 2 Signed Report- US [id number] 00:57:00 [facility] : 1980 Sex: F Patient Name: DIMAS PARKER Unit No: [id number] EXAMS: CPT CODE: [id number] [place] L[place] [address] EXAM: US, US LTD: 04/22/2020, 0020 hours Clinical Indication: Vaginal bleeding. IUP at 23.6 weeks Comparison: None. TECHNIQUE: Technique: Grayscale,color and Doppler transabdominal imaging of the pelvis was performed with standard technique. FINDINGS: An intrauterine is seen in cephalic presentation. heart rate is 1 40 bpm. Placenta is anterior, grade 2. No evidence of placenta previa. Subjectively amniotic fluid islow normal An anterior midline subserosal fibroid is noted measuring 10.3 x 9.5 x 11.5 cm OVARIES: Not visualized. Adnexa is unremarkable. Cervical length is 5.8 cm. OTHER FINDINGS: No free fluid in the pelvic cul-de-sac. If there is further concern, followup pelvic sonographymay be performed. IMPRESSION: 1. Single viable intrauterine gestation in cephalic presentation. 2. Large uterine fibroid. SL: JSYED-H ElectronicallySigned by Steven Ridley on 04/22/2020 at 0057 Reported and signed by: Alex Ridley M.D. CC: Valarie Stanley MD; Ike Hodges Technologist: Eileen Overton RDMS Probe: Trnscrbd D/ (0057) [email or web address] Orig Print D/T: S: 04/22/2020 (0100) [facility] NAME: DIMAS PARKER Radiology Department PHYS: Valarie Trevino MD [address] : 1980 AGE: 39 SEX: F [place], [place] [address] LOC: PEGGY PHONE #: [phone] EXAM DATE: 04/22/2020 STATUS: REG ER FAX #: [phone] RAD NO: Page 1 Signed Report Patient Name: DIMAS PARKER Unit No: [id number] EXAMS: CPT CODE: [id number] [place] LTD [address] <Continued> The [facility] NAME: DIMAS PARKER Radiology Depa rtment PHYS: Valarie Trevino MD [address] : 1980 AGE: 39 SEX: F [place], [place] [address] LOC: LelandJESSA PHONE #: [phone] EXAM DATE: 04/22/2020 STATUS: REG ER FAX #: [phone] RAD NO: Page 2 Signed ReportUA RFLX MICR CULT IF [id number] 00:14:00 Test Item Value Reference Range Interpretation Comments UA COLOR (test code = RED YELLOW A COLU) UA APPEARANCE (test code BLOODY CLEAR = APPU) UA GLUCOSE DIPSTICK (test NEGATIVE NEG code = DGLUU) UA BILIRUBIN DIPSTICK NEGATIVE NEG (test code = BILU) UA KETONE DIPSTICK (test TRACE NEG A code = KETU) UA SPECIFIC GRAVITY (test 1.027 1.001-1.035 N code = SGU) UA BLOOD DIPSTICK (test 3+ NEG A code = SARIKA) UA PH DIPSTICK (test code 6.0 5-9 = ZORAN) UA PROTEIN DIPSTICK (test 2+ NEG A code = PROU) UA UROBILINIOGEN DIPSTICK 4.0 mg/dL NEG A (test code = URO) UA NITRITE DIPSTICK (test NEG NEG code = SUAD) UA LEUKOCYTE ESTERASE 1+ NEG A DIPSTICK (test code = LEUU) UA WBC (test code = WBCU) 2-5 #/hpf NONE SEEN A UA RBC (test code = RBCU) TOO NUMEROUS TO CNT NONE SEEN A #/hpf UA EPITHELIAL CELLS (test FEW #/HPF RARE-FEW code = EPIU) UA BACTERIA (test code = RARE /HPF RARE-FEW BACU) UA MUCUS (test code = 1+ NONE SEEN MUCU) Indication for culture: Suprapubic PainSpecimen Description: CLEAN CATCHCBC W/AUTO [id number] 23:47:00 Test Item Value Reference Range Interpretation Comments WHITE BLOOD CELL (test code = WBC) 10.7 K/mm3 6.6-12.1 N RED BLOOD CELL (test code = RBC) 3.16 M/mm3 3.45-5.01 L HEMOGLOBIN (test code = HGB) 8.3 g/dL 10.7-13.9 L HEMATOCRIT (test code = HCT) 27.7 % 32.1-42.1 L MEAN CELL VOLUME (test code = MCV) 88 fL 84.1-94.8 N MEAN CELL HGB (test code = MCH) 26.3 pg 27-35 L MEAN CELL HGB CONCETRATION (test 30.0 gm/dL 32.2-34.1 L code = MCHC) RED CELL DISTRIBUTION WIDTH (test 15.4 % 12.4-16.5 N code = RDW) PLATELET COUNT (test code = PLT) 241 K/mm3 133-385 N MEAN PLATELET VOLUME (test code = 9.9 fl 9.1-12.7 N MPV) NEUTROPHIL % (test code = NT%) 62.9 % 56.5-79.4 N LYMPHOCYTE % (test code = LY%) 25.7 % 14.3-34.3 N MONOCYTE % (test code = MO%) 7.2 % 5.1-10.4 N EOSINOPHIL % (test code = EO%) 2.0 % 0.1-3.0 N BASOPHIL % (test code = BA%) 0.4 % 0.1-1.0 N NEUTROPHIL # (test code = NT#) 6.8 K/mm3 LYMPHOCYTE # (test code = LY#) 2.8 K/mm3 MONOCYTE # (test code = MO#) 0.8 K/mm3 EOSINOPHIL # (test code = EO#) 0.21 K/mm3 BASOPHIL # (test code = BA#) 0.0 K/mm3 RBC MORPHOLOGY REQUIRED (test code NORMAL NORMAL = RBCM) PLATELET MORPHOLOGY REQUIRED (test NORMAL NORMAL code = PLTMR) SARS-CoV-2 (COVID-19) RNA [Presence] in Respiratory specimen by KATERYNA with probe [id number] 16:38:46 Test Item Value Reference Range Interpretation Comments SARS-CoV-2 (COVID-19) RNA Not detected Not-Detected [Presence] in Respiratory specimen by KATERYNA with probe detection (test code = 67364-7)
[2021-10-06] MEDS ORDERED: IPRATROPIUM BROM 0.5MG/2.5ML ONE (19:18)
[2021-10-06] MEDS ORDERED: dexAMETHasone 10 MG/ML VIAL ONE (19:18)
[2021-10-06] MEDS ORDERED: ALBUTEROL 2.5 MG/3 ML NEB SOL ONE (19:18)
[2021-10-06] MEDS ORDERED: Magnesium Sulfate 2gm IVPB 2 G/50 ML BAG IV ONE (19:19)
[2021-10-06 19:36] LABS: Hematocrit 36.9 % (36.0-45.0); Lymphocytes % 25.1 % (15.3-44.8); MPV 7.8 fL (7.6-11.3); RBC Red Blood Cell Count 4.57 M/uL (3.86-4.86)
[2021-10-06 19:52] LABS: Potassium 3.4 mmol/L (3.5-5.1); Troponin High Sensitivity 4.3 pg/mL (<58.9)
--- NOTE | 2021-10-06 21:32 | RAD REPORT ---
EXAM DESCRIPTION: RAD - Chest Single View - 10/06/2021 9:23 pm CLINICAL HISTORY: SOB Chest pain. COMPARISON: No comparisons FINDINGS: Portable technique limits examination quality. The lungs are grossly clear. The heart is normal in size. No displaced fractures. IMPRESSION: No acute intrathoracic process suspected.
--- NOTE | 2021-10-06 21:51 | EDPHYS ---
Physician Documentation [facility] Name: Ivone White Age: 40 yrs Sex: Female : 1980 Arrival Date: 10/06/2021 Time: 19:02 Bed 8 Private MD: MARCELO Physician Jason Juarez HPI: 10/06 21:46 This 40 yrs old Black Female presents to ER via Ambulatory with complaints of Shortness jmm of breath. 21:46 The patient has shortness of breath at rest. Onset: The symptoms/episode began/occurred jmm gradually, 1 day(s) ago. Duration: The symptoms are continuous, and are steadily getting worse. The patient's shortness of breath is aggravated by nothing, is alleviated by nothing. Associated signs and symptoms: Pertinent positives: non-productive cough, Pertinent negatives: fever, hemoptysis, loss of consciousness. The patient has experienced similar episodes in the past, today's symptoms are similar, to previous Asthma. HEAD TRIMMER: 22:08 [facility] 09/2021 kd3 Historical: - Allergies: 19:12 Flagyl; ph - PMHx: 19:12 Anemia; Asthma; ph - Immunization history:: Adult Immunizations up to date. - Social history:: Smoking status: Patient reports the use of cigarette tobacco products, denies chronic smoking, but will smoke occasionally. ROS: 21:46 Constitutional: Negative for fever, chills, and weight loss, Cardiovascular: Negative jmm for chest pain, palpitations, and edema. 21:46 Respiratory: Positive for cough, shortness of breath. 21:46 All other systems are negative. Exam: 21:46 Constitutional: This is a well developed, well nourished patient who is awake, alert, jmm and in no acute distress. Head/Face: atraumatic. Eyes: EOMI, no conjunctival erythema appreciated ENT: Moist Mucus Membranes Neck: Trachea midline, Supple Chest/axilla: Normal chest wall appearance and motion. Cardiovascular: Regular rate and rhythm. No edema appreciated Abdomen/GI: Non distended, soft 21:46 Skin: General appearance color normal MS/ Extremity: Moves all extremities, no obvious deformities appreciated, no edema noted to the lower extremities Neuro: Awake and alert Psych: Behavior is normal, Mood is normal, Patient is cooperative and pleasant 21:46 Respiratory: Mild wheezing noted to the posterior lung bases bilaterally. Vital Signs: 19:10 BP 142 / 91; Pulse 120; Resp 28; Temp 97.9; Pulse Ox 95% on R/A; ph 19:33 BP 142 / 91; Pulse 109; Resp 23; Pulse Ox 97% on R/A; kd3 20:35 BP 125 / 83; Pulse 107; Resp 19; Pulse Ox 95% on R/A; kd3 22:08 BP 129 / 85; Pulse 92; Resp 17; Pulse Ox 96% on R/A; kd3 MDM: 19:07 Patient medically screened. [facility] 21:48 Data reviewed: vital signs, nurses notes. Counseling: I had a detailed discussion with madisyn the patient and/or guardian regarding: the historical points, exam findings, and any diagnostic results supporting the discharge/admit diagnosis, lab results, radiology results, the need for outpatient follow up, to return to the emergency department if symptoms worsen or persist or if there are any questions or concerns that arise at home. ED course: Patient states feeling much better. No signs of respiratory stress on discharge. Patient advised follow-up PCP and otherwise given strict return precautions. Patient understood agrees plan of care. 10/06 19:07 Order name: Basic Metabolic Panel; Complete Time: 19:54 [facility] 10/06 19:07 Order name: CBC with Diff; Complete Time: 19:45 [facility] 10/06 19:07 Order name: Troponin HS; Complete Time: 19:54 [facility] 10/06 19:07 Order name: XRAY Chest (1 view); Complete Time: 21:33 [facility] 10/06 19:07 Order name: EKG; Complete Time: 19:08 [facility] 10/06 19:07 Order name: Cardiac monitoring; Complete Time: 19:32 [facility] 10/06 19:07 Order name: EKG - Nurse/Tech; Complete Time: 19:32 [facility] 10/06 19:07 Order name: IV Saline Lock; Complete Time: 19:32 [facility] 10/06 19:07 Order name: Labs collected and sent; Complete Time: 19:32 [facility] 10/06 19:07 Order name: O2 Per Protocol; Complete Time: 19:32 [facility] 10/06 19:07 Order name: O2 Sat Monitoring; Complete Time: 19:32 [facility] Administered Medications: 19:22 Drug: DuoNeb (albuterol 2.5 mg, ipratropium 0.5 mg) (3:1) (2.5 mg - 0.5 mg) 3 ml Route: kd3 Nebulizer; 22:10 Follow up: Response: No adverse reaction; Wheezing diminished kd3 19:22 Drug: Magnesium Sulfate 2 grams Route: IVPB; Infused Over: 2 hrs; Site: right kd3 antecubital; 22:09 Follow up: Response: No adverse reaction; IV Status: Completed infusion kd3 19:22 Drug: Decadron - Dexamethasone 10 mg Route: IVP; Site: right antecubital; kd3 22:09 Follow up: Response: No adverse reaction kd3 Disposition Summary: 10/06/21 21:50 Discharge Ordered Location: Home [facility] Condition: Stable [facility] Diagnosis - Unspecified asthma with (acute) exacerbation [facility] Followup: [facility] - With: Private Physician - When: 2 - 3 days - Reason: Recheck today's complaints, Continuance of care, Re-evaluation by your physician Discharge Instructions: - Discharge Summary Sheet [facility] - Asthma, Adult [facility] Forms: - Medication Reconciliation Form [facility] - Thank You Letter [facility] - Antibiotic Education [facility] - Prescription Opioid Use [facility] Prescriptions: - albuterol sulfate 90 mcg/actuation Inhalation HFA aerosol inhaler - inhale 2 puff by INHALATION route every 4-6 hours; 1 Pump; Refills: 0, Product [facility] Selection Permitted - Prednisone 20 mg Oral Tablet - take 3 tablets by ORAL route once daily for 5 days; 15 tablet; Refills: 0, [facility] Product Selection Permitted Signatures: Dispatcher [employer] Charles Brenner PA PA [facility] Adalgisa Sloan, RN RN Sophy Philippe RN RN kd3
--- NOTE | 2021-10-06 21:51 | ER ---
Nurse's Notes [facility] Name: Ivone White Age: 40 yrs Sex: Female : 1980 Arrival Date: 10/06/2021 Time: 19:02 Bed 8 Private MD: Diagnosis: Unspecified asthma with (acute) exacerbation Presentation: 10/06 19:10 Chief complaint: Patient states: SOB that started yesterday and progressively became ph worse, hx of asthma, rescue inhaler not helping, denies fever or pain, child recently dx w/ RSV. Coronavirus screen: Vaccine status: Patient reports receiving the 2nd dose of the covid vaccine. Ebola Screen: No symptoms or risks identified at this time. Initial Sepsis Screen: Does the patient meet any 2 criteria? No. Patient's initial sepsis screen is negative. Does the patient have a suspected source of infection? No. Patient's initial sepsis screen is negative. Risk Assessment: Do you want to hurt yourself or someone else? Patient reports no desire to harm self or others. 19:10 Method Of Arrival: Ambulatory 19:10 Acuity: SANDER 2 ph 19:33 Onset of symptoms was October 06, 2021. kd3 Triage Assessment: 19:12 General: Appears uncomfortable, Behavior is cooperative, appropriate for age, Denies ph fever. Pain: Denies pain. Neuro: Level of Consciousness is awake, alert, obeys commands, Oriented to person, place, time, situation. Respiratory: Airway is patent Respiratory effort is labored, Respiratory pattern is tachypnea Breath sounds with wheezes. Derm: Skin is intact, is healthy with good turgor. DOCUMENT PHOTOGRAPHER: 22:08 LMP 09/2021 kd3 Historical: - Allergies: 19:12 Flagyl; ph - PMHx: 19:12 Anemia; Asthma; ph - Immunization history:: Adult Immunizations up to date. - Social history:: Smoking status: Patient reports the use of cigarette tobacco products, denies chronic smoking, but will smoke occasionally. Screenin:22 Abuse screen: Denies threats or abuse. Nutritional screening: No deficits noted. ke1 Tuberculosis screening: No symptoms or risk factors identified. Fall Risk No fall in past 12 months (0 pts). No secondary diagnosis (0 pts). Ambulatory Aid- None/Bed Rest/Nurse Assist (0 pts). Gait- Normal/Bed Rest/Wheelchair (0 pts) Mental Status- Oriented to own ability (0 pts). Total Winter Fall Scale indicates. Assessment: 19:32 General: Appears uncomfortable, Behavior is calm, cooperative. Respiratory: Respiratory kd3 pattern is regular, Breath sounds with wheezes bilaterally. 20:35 Reassessment: Patient and/or family updated on plan of care and expected duration. Pain kd3 level reassessed. Patient is alert, oriented x 3, equal unlabored respirations, skin warm/dry/pink. Patient states feeling better. Patient states symptoms have improved. Vital Signs: 19:10 BP 142 / 91; Pulse 120; Resp 28; Temp 97.9; Pulse Ox 95% on R/A; ph 19:33 BP 142 / 91; Pulse 109; Resp 23; Pulse Ox 97% on R/A; kd3 20:35 BP 125 / 83; Pulse 107; Resp 19; Pulse Ox 95% on R/A; kd3 22:08 BP 129 / 85; Pulse 92; Resp 17; Pulse Ox 96% on R/A; kd3 ED Course: 19:02 Patient arrived in ED. ph 19:03 Arm band placed on Patient placed in an exam room, on a stretcher. ll1 19:04 Charles Wharton PA is PHCP. jmm 19:04 Jason Juarez MD is Attending Physician. jmm 19:10 Sophy Philippe, KADE is Primary Nurse. kd3 19:12 Triage completed. ph 19:22 Inserted saline lock: 20 gauge in right antecubital area, using aseptic technique. ke1 19:32 No provider procedures requiring assistance completed. kd3 19:33 Patient has correct armband on for positive identification. kd3 21:25 XRAY Chest (1 view) In Process Unspecified. EDMS 22:08 IV discontinued, intact, bleeding controlled, No redness/swelling at site. Pressure kd3 dressing applied. Administered Medications: 19:22 Drug: DuoNeb (albuterol 2.5 mg, ipratropium 0.5 mg) (3:1) (2.5 mg - 0.5 mg) 3 ml Route: kd3 Nebulizer; 22:10 Follow up: Response: No adverse reaction; Wheezing diminished kd3 19:22 Drug: Magnesium Sulfate 2 grams Route: IVPB; Infused Over: 2 hrs; Site: right kd3 antecubital; 22:09 Follow up: Response: No adverse reaction; IV Status: Completed infusion kd3 19:22 Drug: Decadron - Dexamethasone 10 mg Route: IVP; Site: right antecubital; kd3 22:09 Follow up: Response: No adverse reaction kd3 Medication: 19:33 VIS not applicable for this client. kd3 Outcome: 21:50 Discharge ordered by MD. mars 22:08 Discharged to home ambulatory. kd3 22:08 Condition: stable 22:08 Discharge instructions given to patient, Instructed on discharge instructions, follow up and referral plans. medication usage, Demonstrated understanding of instructions, follow-up care, medications, Prescriptions given X 2. 22:10 Patient left the ED. kd3 Signatures: Dispatcher [employer] EDMS Charles Wharton PA PA jmm Hall, Patricia RN Pearl Ayers ph, RN RN ll1 Sophy Philippe RN RN kd3 Lupe Webber RN RN ke1
[2021-10-06 22:22] VITALS: TEMP 97.9
[2021-10-06 23:06] VITALS: BP 129/85; O2SAT 96
--- NOTE | 2021-10-07 13:21 | EKG ---
Test Date: 2021-10-06 Test Time: 19:24:02 Scrap Stripper Hand: DAMIEN MEASUREMENT RESULTS: Intervals: Rate: 98 [place]: 142 QRSD: 78 QT: 334 QTc: 426 [place]: P: 65 [place]: 142 QRS: 51 T: 50 INTERPRETIVE STATEMENTS: Normal sinus rhythm Nonspecific T wave abnormality Abnormal ECG No previous ECG available for comparison Electronically Signed On 10-07-21 13:19:12 CDT by Huseyin Rendon
== END 2021-10-06 22:10 | disposition home or self-care (01) ==
LOC: ER 19:00
DX: J45.901 Unspecified asthma with (acute) exacerbation (principal); F17.210 Nicotine dependence, cigarettes, uncomplicated
CPT/HCPCS: 96365; 93005; 85025; 80048; 36415; 84484; 71045; 94640; 96375; 99284; 96366; J1100; J3475

== ENCOUNTER → 2023-04-23 | Emergency (ER) | payer OTHER ==
[~2023-04-23] MED LIST: ACETAMINOPHEN 500 MG TAB ONE; LIDOCAINE 1% MPF 2 ML AMPULE ONE; NEOMY/POLY/HC 1% OTIC DROPS ONE
--- NOTE | 2023-04-23 23:04 | ER ---
Nurse's Notes [facility] Name: Ivone White Age: 42 yrs Sex: Female : 1980 Arrival Date: 04/23/2023 Time: 22:02 Bed Treatment Private MD: Diagnosis: Foreign body in left ear Presentation: 04/23 22:16 Chief complaint: Patient states: "i have a bug or something in my left ear". as6 Coronavirus screen: At this time, the client does not indicate any symptoms associated with coronavirus-19. Ebola Screen: No symptoms or risks identified at this time. Initial Sepsis Screen: Does the patient meet any 2 criteria? No. Patient's initial sepsis screen is negative. Does the patient have a suspected source of infection? No. Patient's initial sepsis screen is negative. Risk Assessment: Do you want to hurt yourself or someone else? Patient reports no desire to harm self or others. Onset of symptoms was April 23, 2023 at 21:30. 22:16 Method Of Arrival: Ambulatory as6 22:16 Acuity: SANDER 5 as6 Triage Assessment: 22:28 General: Appears in no apparent distress. Behavior is calm, cooperative. Pain: as6 Complains of pain in head Quality of pain is described as aching. EENT: Reports "I feel like there is a bug in my ear" . Neuro: Level of Consciousness is awake, alert, obeys commands, Oriented to person, place, time, situation. 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 - Social history:: Smoking status: Patient reports the use of cigarette tobacco products, smokes one-half pack cigarettes per day. Screenin:29 [facility] ED Fall Risk Assessment (Adult) Score/Fall Risk Level 0 - 2 = Low Risk. Abuse as6 screen: Denies threats or abuse. Denies injuries from another. Nutritional screening: No deficits noted. Tuberculosis screening: No symptoms or risk factors identified. Assessment: 23:16 Reassessment: Patient states feeling better. Patient states symptoms have improved. as6 Vital Signs: 22:16 BP 127 / 90; Pulse 73; Resp 18 S; Temp 98.6(TE); Pulse Ox 100% on R/A; Weight 99.79 kg as6 (R); Height 5 ft. 6 in. (R); 22:16 Body Mass Index 35.51 (99.79 kg, 167.64 cm) as6 ED Course: 22:08 Patient arrived in ED. mr 22:17 Fern Lay [facility]. sb4 22:17 Jam Hargrove MD is Attending Physician. sb4 22:19 Triage completed. as6 22:20 Arm band placed on. as6 22:21 Shaheed Villarreal, KADE is Primary Nurse. as6 22:29 Bed in low position. Call light in reach. as6 23:03 Terra Wise MD is Referral Physician. sb4 23:16 Provided Education on: follow up. as6 23:16 No provider procedures requiring assistance completed. Patient did not have IV access as6 during this emergency room visit. Administered Medications: 22:53 Drug: Lidocaine Infiltration (1 %) 1 ml 5 ml Infiltration once; apply 1ml into left ear as6 {Note: applied to left ear.} Volume: 5 ml; Route: Infiltration; 23:17 Follow up: Response: No adverse reaction as6 23:16 Drug: Acetaminophen PO 1000 mg PO once Route: PO; as6 23:17 Follow up: Response: No adverse reaction as6 23:16 Drug: Afdtxoxu-Xffbgotys-SO Otic Drops 4 drops Otic once Route: Otic; Site: left ear; as6 23:17 Follow up: Response: No adverse reaction as6 Medication: 22:29 VIS not applicable for this client. as6 Outcome: 23:04 Discharge ordered by . sb4 23:16 Discharged to home ambulatory, as6 23:16 Condition: stable 23:16 Discharge instructions given to patient, Instructed on discharge instructions, follow up and referral plans. Demonstrated understanding of instructions, follow-up care, 23:17 Patient left the ED. as6 Signatures: Nalini Ford, Reg Reg mr Shaheed Villarreal, KADE RN as6 Fern Lay PA-C PA-C sb4
--- NOTE | 2023-04-23 23:05 | EDPHYS ---
Physician Documentation [facility] Name: Ivone White Age: 42 yrs Sex: Female : 1980 Arrival Date: 04/23/2023 Time: 22:02 Bed Treatment Private MD: ED Physician Jam Hargrove HPI: 04/23 22:46 This 42 yrs old Black Female presents to ER via Ambulatory with complaints of Ear sb4 problem. 22:47 The patient presents with a foreign body sensation, presumably from an insect. The sb4 complaints affect the left ear. Onset: The symptoms/episode began/occurred just prior to arrival. Associated signs and symptoms: Pertinent negatives: fever, lightheadedness, sinus trouble, tinnitus, vertigo, vomiting. The patient has not experienced similar symptoms in the past. The patient has not recently seen a physician. 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 - Social history:: Smoking status: Patient reports the use of cigarette tobacco products, smokes one-half pack cigarettes per day. ROS: 22:47 Constitutional: Negative for fever, chills, and weight loss, sb4 22:47 ENT: Positive for foreign body sensation, 22:47 All other systems are negative, Exam: 22:47 Constitutional: This is a well developed, well nourished patient who is awake, alert, sb4 and in no acute distress. Head/Face: Normocephalic, atraumatic. Eyes: Extra-ocular motions intact. Periorbital areas with no swelling, redness, or edema. Skin: Warm, dry with normal turgor. Normal color with no rashes, no lesions, and no evidence of cellulitis. MS/ Extremity: Pulses equal, no cyanosis. Neurovascular intact. Full, normal range of motion. Neuro: Awake and alert, GCS 15, oriented to person, place, time, and situation. Motor strength 5/5 in all extremities. Sensory grossly intact. 22:47 ENT: Ear canal(s): foreign body, an insect, in the left external ear canal, Vital Signs: 22:16 BP 127 / 90; Pulse 73; Resp 18 S; Temp 98.6(TE); Pulse Ox 100% on R/A; Weight 99.79 kg as6 (R); Height 5 ft. 6 in. (R); 22:16 Body Mass Index 35.51 (99.79 kg, 167.64 cm) as6 MDM: 22:22 Patient medically screened. sb4 22:47 Differential diagnosis: foreign body. sb4 23:02 Data reviewed: vital signs, nurses notes, I have discussed the patient's sb4 presentation/case with the attending Emergency Department Physician; and as a result, I will discharge patient. Counseling: I had a detailed discussion with the patient and/or guardian regarding the historical points, exam findings, and any diagnostic results supporting the discharge/admit diagnosis, to return to the emergency department if symptoms worsen or persist or if there are any questions or concerns that arise at home. ED course: bug "jumped" out of ear after administration of lidocaine into ear canal. patient reports discomfort in left ear now. erythema noted to ear canal. will dispo with ear drops. Administered Medications: 22:53 Drug: Lidocaine Infiltration (1 %) 1 ml 5 ml Infiltration once; apply 1ml into left ear as6 {Note: applied to left ear.} Volume: 5 ml; Route: Infiltration; 23:17 Follow up: Response: No adverse reaction as6 23:16 Drug: Acetaminophen PO 1000 mg PO once Route: PO; as6 23:17 Follow up: Response: No adverse reaction as6 23:16 Drug: Yrlvjmmq-Indheeegm-HC Otic Drops 4 drops Otic once Route: Otic; Site: left ear; as6 23:17 Follow up: Response: No adverse reaction as6 Disposition Summary: 04/23/23 23:04 Discharge Ordered Notes: Location: Home sb4 Problem: new sb4 Symptoms: are resolved sb4 Condition: Stable sb4 Diagnosis - Foreign body in left ear sb4 Followup: sb4 - With: Terra Wise MD - When: As needed - Reason: If symptoms return, Recheck today's complaints, Re-evaluation by your physician Discharge Instructions: - Discharge Summary Sheet sb4 - Ear Drops, Adult, [id number] sb4 Forms: - Medication Reconciliation Form sb4 - Thank You Letter sb4 - Antibiotic Education sb4 - Prescription Opioid Use sb4 - Patient Portal Instructions sb4 - Leadership Thank You Letter sb4 Signatures: Shaheed Villarreal RN RN as6 Fern Lay PA-C PA-C sb4
[2023-04-24 02:35] VITALS: BP 127/90; TEMP 98.6; O2SAT 100
== END ==
LOC: ER 22:02
DX: T16.2XXA Foreign body in left ear, initial encounter (principal); Z88.1 Allergy status to other antibiotic agents; F17.210 Nicotine dependence, cigarettes, uncomplicated
CPT/HCPCS: 99283

== ENCOUNTER 2024-04-10 11:13 | Emergency (ER) | payer OTHER, SELFPAY ==
--- NOTE | 2024-04-10 11:50 | RAD REPORT ---
EXAM: Chest Pa And Lat (2 Views) HISTORY: COUGH COMPARISON: 10/06/2021 FINDINGS: LUNGS/PLEURA: The lungs are clear. No pleural effusions or pneumothorax. No pulmonary edema. MEDIASTINUM: The mediastinal silhouette is within normal limits. CARDIAC: The cardiac silhouette is within normal limits. UPPER ABDOMEN: No significant abnormality. BONES: No acute fracture. LINES/TUBES/OTHER: N/A IMPRESSION: No evidence of acute cardiopulmonary disease.
[2024-04-10] MEDS ORDERED: BENZONATATE 100 MG CAP PO ONE (11:57)
[2024-04-10 12:54] LABS: SARS-CoV-2 Antigen CONTROL BLUE LINE VIS/BG OK; SARS-CoV-2 Antigen Rapid Res Negative (Negative)
--- NOTE | 2024-04-10 13:06 | ER ---
Nurse's Notes [facility] Name: Ivone White Age: 43 yrs Sex: Female : 1980 Arrival Date: 04/10/2024 Time: 11:13 Bed 13 Private MD: Diagnosis: Streptococcal pharyngitis;Cough Presentation: 04/10 11:22 Chief complaint: Patient states: Fever, painful cough and SOB x "a few days", denies ph N/V/D. Coronavirus screen: Vaccine status: Patient reports being unvaccinated. Ebola Screen: No symptoms or risks identified at this time. Initial Sepsis Screen: Does the patient meet any 2 criteria? No. Patient's initial sepsis screen is negative. Does the patient have a suspected source of infection? No. Patient's initial sepsis screen is negative. Risk Assessment: Do you want to hurt yourself or someone else? Patient reports no desire to harm self or others. Onset of symptoms was April 10, 2024. 11:22 Method Of Arrival: Ambulatory ph 11:22 Acuity: SANDER 3 ph Triage Assessment: 11:22 General: Appears in no apparent distress. uncomfortable. Respiratory: Respiratory: rs5 Onset: The symptoms/episode began/occurred gradually, the patient has mild shortness of breath. 11:22 General: Behavior is calm, cooperative. rs5 Historical: - Allergies: 11:23 Flagyl; ph - PMHx: 11:23 Anemia; Asthma; Deep vein thrombosis; diabetes mellitus; Hypertensive disorder; ph - PSHx: 11:23 section; ph - Immunization history:: Adult Immunizations up to date. - Infectious Disease History:: Denies. - Social history:: Smoking status: Patient denies any tobacco usage or history of. Screenin:20 [facility] ED Fall Risk Assessment (Adult) History of falling in the last 3 months, rs5 including since admission No falls in past 3 months (0 pts) Confusion or Disorientation No (0 pts) Intoxicated or Sedated No (0 pts) Impaired Gait No (0 pts) Mobility Assist Device Used No (0 pt) Altered Elimination No (0 pt) Score/Fall Risk Level 0 - 2 = Low Risk Oriented to surroundings, Maintained a safe environment. Abuse screen: Denies threats or abuse. Nutritional screening: No deficits noted. Tuberculosis screening: No symptoms or risk factors identified. Assessment: 11:22 General: Appears in no apparent distress. uncomfortable, Behavior is calm, cooperative. rs5 Pain: Denies pain. Neuro: Level of Consciousness is awake, alert, obeys commands, Oriented to person, place, time, situation. Cardiovascular: Patient's skin is warm and dry. Rhythm is regular. Respiratory: Reports shortness of breath cough that is Airway is patent Respiratory effort is even, unlabored, Respiratory pattern is regular, symmetrical, GI: Abdomen is round non-distended, Abd is soft and non tender X 4 quads. : No signs and/or symptoms were reported regarding the genitourinary system. EENT: No signs and/or symptoms were reported regarding the EENT system. Derm: Skin is intact, Skin is pink, warm \\T\\ dry. Musculoskeletal: Range of motion: intact in all extremities. 12:29 Reassessment: Patient and/or family updated on plan of care and expected duration. Pain rs5 level reassessed. Patient is alert, oriented x 3, equal unlabored respirations, skin warm/dry/pink. 13:15 Reassessment: Patient and/or family updated on plan of care and expected duration. Pain rs5 level reassessed. Patient is alert, oriented x 3, equal unlabored respirations, skin warm/dry/pink. Vital Signs: 11:22 BP 131 / 92; Pulse 87; Resp 24; Temp 99.4(O); Pulse Ox 97% on R/A; Weight 99.79 kg; ph Height 5 ft. 6 in. ; 12:29 BP 125 / 88; Pulse 70; Resp 17; Temp 99(O); Pulse Ox 98% ; rs5 13:15 BP 122 / 81; Pulse 74; Resp 17; Temp 98(O); Pulse Ox 99% on R/A; rs5 11:22 Body Mass Index 35.51 (99.79 kg, 167.64 cm) ph ED Course: 11:20 Patient has correct armband on for positive identification. Placed in gown. Bed in low rs5 position. Call light in reach. Side rails up X2. 11:20 No provider procedures requiring assistance completed. rs5 11:21 Patient arrived in ED. mg5 11:23 Triage completed. ph 11:23 Arm band placed on Patient placed in an exam room, on a stretcher, on pulse oximetry. ph 11:25 Cortez Payton, RN is Primary Nurse. rs5 11:26 Jason Lawson PA is PHCP. cp 11:26 Jam Hargrove MD is Attending Physician. cp 11:47 XRAY Chest Pa And Lat (2 Views) In Process Unspecified. EDMS 12:55 Provided Education on: dishcarge instructions. rs5 13:20 Patient did not have IV access during this emergency room visit. rs5 Administered Medications: 11:50 Drug: Tessalon Perle PO 200 mg PO once Route: PO; rs5 12:44 Follow up: Response: No adverse reaction rs5 13:05 Drug: Amoxicillin-Clavulanate PO 875 mg PO once Route: PO; rs5 Medication: 11:20 VIS not applicable for this client. rs5 Outcome: 13:06 Discharge ordered by MD. cp 13:20 Discharged to home via ambulance, with family, rs5 13:20 Condition: good 13:20 Condition: stable rs5 13:20 Discharge instructions given to patient, family, Instructed on discharge instructions, follow up and referral plans. Demonstrated understanding of instructions, follow-up care, 13:21 Patient left the ED. rs5 Signatures: Dispatcher [employer] EDMT Adalgisa Sloan RN RN ph Jason Lawson PA PA cp Cortez Payton, KADE RN rs5 Chrissie Boo mg5
--- NOTE | 2024-04-10 13:06 | EDPHYS ---
Physician Documentation [facility] Name: Ivone White Age: 43 yrs Sex: Female : 1980 Arrival Date: 04/10/2024 Time: 11:13 Bed 13 Private MD: ED Physician Jam Hargrove HPI: 04/10 11:35 This 43 yrs old Black Female presents to ER via Ambulatory with complaints of Breathing cp Difficulty. 11:35 The patient has shortness of breath during heavy activity. cp 11:35 Onset: The symptoms/episode began/occurred 4 day(s) ago. Associated signs and symptoms: cp Pertinent positives: productive cough, Pertinent negatives: diaphoresis, fever, hemoptysis, vomiting, chills. Severity of symptoms: in the emergency department the symptoms are unchanged despite home interventions. Historical: - Allergies: 11: Flagyl; ph - PMHx: 11:23 Anemia; Asthma; Deep vein thrombosis; diabetes mellitus; Hypertensive disorder; ph - PSHx: 11:23 section; ph - Immunization history:: Adult Immunizations up to date. - Infectious Disease History:: Denies. - Social history:: Smoking status: Patient denies any tobacco usage or history of. ROS: 11:40 Constitutional: Negative for body aches, chills, fever, poor PO intake, cp 11:40 Eyes: Negative for injury, pain, redness, and discharge, cp 11:40 ENT: Positive for sore throat, Negative for drainage from ear(s), ear pain, difficulty swallowing, difficulty handling secretions, 11:40 Cardiovascular: Negative for chest pain, 11:40 Respiratory: Positive for cough, "sounds productive", shortness of breath, Negative for wheezing, 11:40 Abdomen/GI: Negative for abdominal pain, vomiting, diarrhea, constipation, 11:40 Skin: Negative for rash, 11:40 Neuro: Negative for altered mental status, dizziness, headache, weakness, 11:40 All other systems are negative, Exam: 11:45 Constitutional: The patient appears in no acute distress, alert, awake, non-toxic, well cp developed, well nourished, obese, 11:45 Head/Face: Normocephalic, atraumatic. cp 11:45 Eyes: Periorbital structures: appear normal, Conjunctiva: normal, no exudate, no injection, Sclera: no appreciated abnormality, Lids and lashes: appear normal, bilaterally, 11:45 ENT: External ear(s): are unremarkable, Ear canal(s): are normal, clear, TM's: bulging, is not appreciated, bilaterally, dullness, bilaterally, erythema, is not appreciated, bilaterally, Nose: is normal, Mouth: Lips: moist, Oral mucosa: moist, Posterior pharynx: Airway: no evidence of obstruction, patent, Tonsils: bilaterally enlarged, with erythema, no exudate, Uvula: midline, erythema, that is mild, exudate, is not appreciated, 11:45 Neck: ROM/movement: is normal, is supple, no meningismus, no nuchal rigidity, 11:45 Chest/axilla: Inspection: normal, :45 Cardiovascular: Rate: normal, Rhythm: regular, 11:45 Respiratory: the patient does not display signs of respiratory distress, Respirations: normal, no use of accessory muscles, no retractions, labored breathing, is not present, Breath sounds: bronchial sounds, that are mild, are heard diffusely, decreased breath sounds, are not appreciated, stridor, is not appreciated, + upper airway congestion. wheezing: is not appreciated, 11:45 Abdomen/GI: Exam negative for discomfort, distension, guarding, Inspection: abdomen appears normal, 11:45 Back: pain, is absent, ROM is normal, Vital Signs: 11:22 BP 131 / 92; Pulse 87; Resp 24; Temp 99.4(O); Pulse Ox 97% on R/A; Weight 99.79 kg; ph Height 5 ft. 6 in. ; 12:29 BP 125 / 88; Pulse 70; Resp 17; Temp 99(O); Pulse Ox 98% ; rs5 13:15 BP 122 / 81; Pulse 74; Resp 17; Temp 98(O); Pulse Ox 99% on R/A; rs5 11:22 Body Mass Index 35.51 (99.79 kg, 167.64 cm) ph MDM: 11:26 Medical Screening Exam initiated cp 13:05 Data reviewed: vital signs, nurses notes, lab test result(s), radiologic studies, plain cp films, and as a result, I will discharge patient. 13:05 Differential diagnosis: asthma, Bronchitis pneumonia, Pneumothorax reactive airway cp disease. Antibiotic administration: The patient is discharged and will get outpatient antibiotics, Amoxicillin. I considered the following discharge prescriptions or medication management in the emergency department Medications were administered in the Emergency Department. See MAR. Counseling: I had a detailed discussion with the patient and/or guardian regarding the historical points, exam findings, and any diagnostic results supporting the discharge/admit diagnosis, lab results, radiology results, to return to the emergency department if symptoms worsen or persist or if there are any questions or concerns that arise at home. 04/10 11:32 Order name: Influenza Screen (a \\T\\ B); Complete Time: 13:05 cp 12 11:32 Order name: Strep; Complete Time: 13:05 cp 04/10 11:32 Order name: SARS RAPID; Complete Time: 13:05 cp 04/10 11:32 Order name: RSV; Complete Time: 13:05 cp 04/10 11:32 Order name: XRAY Chest Pa And Lat (2 Views); Complete Time: 12:01 cp 04/10 12:01 Interpretation: Report reviewed. cp Administered Medications: 11:50 Drug: Tessalon Perle PO 200 mg PO once Route: PO; rs5 12:44 Follow up: Response: No adverse reaction rs5 13:05 Drug: Amoxicillin-Clavulanate PO 875 mg PO once Route: PO; rs5 Disposition Summary: 04/10/24 13:06 Discharge Ordered Notes: Location: Home cp Problem: new cp Symptoms: have improved cp Condition: Stable cp Diagnosis - Streptococcal pharyngitis cp - Cough cp Followup: cp - With: Private Physician - When: 2 - 3 days - Reason: Worsening of condition Discharge Instructions: - Discharge Summary Sheet cp - Strep Throat, Adult cp - Cough, Adult cp Forms: - Medication Reconciliation Form cp - Antibiotic Education cp - Prescription Opioid Use cp - Patient Portal Instructions cp - Leadership Thank You Letter cp - Work release form rs5 Prescriptions: - Bromfed DM 2-30-10 mg/5 mL Oral syrup - administer 10 milliliter ORAL route every 6 hours as needed for cold symptoms; cp 240 milliliter; Refills: 0, Product Selection Permitted - Amoxicillin 875 mg Oral Tablet - take 1 tablet ORAL route every 12 hours for 10 days; 20 tablet; Refills: 0, cp Product Selection Permitted - Ibuprofen 800 mg Oral Tablet - take 1 tablet ORAL route every 8 hours As needed take with food; 30 tablet; cp Refills: 0, Product Selection Permitted Signatures: Dispatcher [employer] EDMS Adalgisa Sloan, RN RN ph Jason Lawson PA PA cp Cortez Payton RN RN rs5 Corrections: (The following items were deleted from the chart) 11:32 11:32 Influenza Screen (A \\T\\ B)+BA.LAB.BRZ ordered. EDMS EDMS 11:32 Group A Streptococcus Rapid Sc+BA.LAB.BRZ ordered. EDMS EDMS 11:32 SARS-COV-2 Antigen Rapid+I.LAB.BRZ ordered. EDMS EDMS 11:32 Respiratory Syncytial Virus Ag+BA.LAB.BRZ ordered. EDMS EDMS 32 11:32 Chest Pa And Lat (2 Views)+RAD.RAD.BRZ ordered. EDMS EDMS
[2024-04-10] MEDS ORDERED: AMOX/K CLAV 875 MG TAB ONE (13:16)
[2024-04-10 15:08] VITALS: BP 125/88; TEMP 99; O2SAT 98
== END 2024-04-10 13:21 | disposition home or self-care (01) ==
LOC: ER 11:13
DX: J02.0 Streptococcal pharyngitis (principal); R05.9 Cough, unspecified; Z11.52 Encounter for screening for COVID-19
CPT/HCPCS: 36415; 71046; 87081; 87804; 87807; 87811; 99283